=== PATIENT | male | born 2000 | race Caucasian/White ===

== ENCOUNTER 2021-12-31 01:12 | Emergency (ER) | payer OTHER ==
[2021-12-31 01:27] VITALS: TEMP 98.4
[2021-12-31] MEDS ORDERED: ZOFRAN ODT4 MG PO (02:44)
[2021-12-31 03:03] VITALS: BP 129/67; PULSE 88
== END 2021-12-31 03:03 | disposition home or self-care (01) ==
LOC: COL.ER 01:12
DX: K91.0 Vomiting following gastrointestinal surgery (principal)